=== PATIENT | male | born 1955 | race Caucasian/White ===

== ENCOUNTER 2021-01-31 05:51 | Inpatient (IN) | payer MEDICARE, OTHER ==
[~2021-01-31] VITALS: Ht 180.3 cm; Wt 86.3 kg
[~2021-01-31 05:51] MED LIST: COZAAR50 MG PO; DIOVAN320 MG PO; LEVAQUIN500 MG PO; LIPITOR20 MG PO; METRONIDAZOLE500 MG PO; NORCO 5-325 TA1 EACH PO; NORVASC5 MG PO; PLAVIX75 MG PO; TOPROL XL 50 MG50 MG PO; TOPROL XL100 MG PO; ZOCOR20 MG PO
[2021-01-31 06:11] LABS: BASOPHIL 0.5 % (0-2); EOSINOPHIL 0.6 % (0-7); HCT 43.2 % (42.0-52.0); HGB 14.9 g/dl (13.2-18.0); LYMPHOCYTE 22.2 % (15-48); MCH 32.6 pg (25.0-31.0); MCHC 34.5 g/dL (32.0-36.0); MCV 94.5 fL (78.0-100.0); MONOCYTE 8.7 % (0-12); MPV 9.2 fL (6.0-9.5); NEUTROPHIL 67.6 % (41-80); NRBC 0; PLT 254 K/uL (150-400); RBC 4.57 M/uL (4.70-6.00); RDW 12.5 % (11.5-14.0); WBC 15.2 K/uL (4.0-10.5)
[2021-01-31 06:37] LABS: BILIRUBIN NEGATIVE (NEGATIVE); BLOOD TRACE-INTACT Ery/uL (NEGATIVE); CLARITY HAZY (CLEAR); COLOR YELLOW (YELLOW); GLUCOSE (U) NORMAL (NORMAL); LEUKOCYTES 2+ Leu/uL (NEGATIVE); NITRITE POSITIVE (NEGATIVE); PROTEIN NEGATIVE (NEGATIVE); SPECIFIC GRAVITY 1.015 (1.001-1.030)
[2021-01-31 06:50] LABS: BACTERIA 4+
[2021-01-31 07:04] LABS: ALBUMIN 3.5 g/dL (3.4-5.0); BILIRUBIN - TOTAL 1.3 mg/dL (0.2-1.0); BUN/CREAT RATIO (CALC) 10.8 RATIO; CREATININE 0.93 mg/dL (0.67-1.17); GLOBULIN (CALCULATION) 4.4 g/dL; POTASSIUM 4.7 mmol/L (3.5-5.1); TOTAL PROTEIN 7.9 g/dL (6.4-8.2)
[2021-01-31] MEDS ORDERED: PLAVIX75 MG PO (11:38)
[2021-01-31] MEDS ORDERED: HCTZ12.5 MG PO (11:40)
[2021-01-31] MEDS ORDERED: DIOVAN320 MG PO (11:41)
[2021-02-01 06:45] LABS: BASOPHIL 0.6 % (0-2); EOSINOPHIL 0.8 % (0-7); HCT 40.2 % (42.0-52.0); HGB 13.6 g/dl (13.2-18.0); LYMPHOCYTE 19.7 % (15-48); MCH 32.8 pg (25.0-31.0); MCHC 33.8 g/dL (32.0-36.0); MCV 96.9 fL (78.0-100.0); MONOCYTE 6.9 % (0-12); MPV 9.3 fL (6.0-9.5); NEUTROPHIL 71.3 % (41-80); NRBC 0; PLT 247 K/uL (150-400); RBC 4.15 M/uL (4.70-6.00); RDW 12.7 % (11.5-14.0); WBC 14.5 K/uL (4.0-10.5)
[2021-02-01 07:07] LABS: ALBUMIN 3.2 g/dL (3.4-5.0); BILIRUBIN - TOTAL 1.4 mg/dL (0.2-1.0); GLOBULIN (CALCULATION) 4.2 g/dL; POTASSIUM 3.8 mmol/L (3.5-5.1); TOTAL PROTEIN 7.4 g/dL (6.4-8.2)
--- NOTE | 2021-02-01 15:33 | NUR ---
02/01/21 Mr. Oro lives at home with his spouse. He is employed at [employer]. Mr. Oro will need IV antibiotics at discharge. He has chosen to Outpatient infusion.
[2021-02-02 09:34] LABS: BUN/CREAT RATIO (CALC) 11.1 RATIO; CREATININE 0.72 mg/dL (0.67-1.17); POTASSIUM 3.7 mmol/L (3.5-5.1)
[2021-02-02 09:38] LABS: HCT 34.5 % (42.0-52.0); HGB 11.8 g/dl (13.2-18.0); MCH 32.6 pg (25.0-31.0); MCHC 34.2 g/dL (32.0-36.0); MCV 95.3 fL (78.0-100.0); MPV 9.2 fL (6.0-9.5); RBC 3.62 M/uL (4.70-6.00); RDW 12.4 % (11.5-14.0); WBC 10.3 K/uL (4.0-10.5)
--- NOTE | 2021-02-02 18:26 | NUR ---
02/02/21 1630 PIC LINE PLACEMENT ORDER RECEIVED FOR PICC LINE PLACEMENT. RISKS AND BENEFITS EXPLAINED. CONSENT SIGNED. PT'S LEFT UPPER ARM BASILIC VEIN VISUALIZED USING THE SITE RITE 6 ULTRA MACHINE. PT THEN PREPPED AND DRAPED IN STERILE FASHION. THE AREA WAS CLEANSED WITH CHLORAPREP. THE AREA WAS NUMBED WITH 1CC OF 1% LIDOCAINE. A 21GA NEEEDLE WAS USED. GOOD BLOOD RETURN. THE GUIDE WIRE THREADED EASILY. THE NEEDLE WAS REMOVED AND THE SHEATH WAS PLACED OVER THE WIRE. THE WIRE WAS THEN REMOVE AND A CAP WAS PLACED ON THE END. THE PT WAS MEASURED FOR THE PICC PLACEMENT. PICC WAS TRIMMED AT 53 CM AND FLUSHED. THE INTRODUCER WAS REMOVED AND THE PICC CATHETER WAS GUIDED INTO POSITION. THE SHEATH WAS PEELED BACK. A STERILE BIOPATCH WAS PLACED AT THE INSERTION SITE. A STAT LOCK WAS PLACED ON. A STERILE SORBAVIEW WAS PLACED OVER THE PICC LINE. A STAT PORTABLE CHEST XRAY WAS OBTAINED. PER RADIOLOGIST THE PICC LINE IS IN THE SVC. THE STYLET WAS REMOVED AND THE A CLEAR CAP WAS FLUSHED AND PLACED ON THE END. PT HAS A 4 FR SINGLE LUMEN POWER PICC. TRIMMED AT 53 CM, INSERTION 0 CM, BICEPS 33 CM. GOOD BLOOD RETURN NOTED. PT TOLERATED WELL. REPORT TO Noe BERNAL RN MED SURG. AFTER REMOVING THE STYLET THE DRESSING WAS CHANGE DUE TO THE BIPOPATCH NOTED SATURATEC WITH BLOOD. THE DRESSING DIS NOT HAV BLODD AND THE STAT LOCK WAS NOT BLOODY. DRESSING CHANGE WAS DONE IN STERILE FASHION. PT TOLERATED WELL. REPORT TO Noe BERNAL RN.
[2021-02-03] MEDS ORDERED: NORCO 5-325 TA1 EACH PO ×2 (12:38→12:39)
[2021-02-03] MEDS ORDERED: ERTAPENEM1 GM IV (12:38)
--- NOTE | 2021-02-05 14:26 | NUR ---
TC FROM MR. WALLIS OVER THE WEEKEND. HE STATED THAT THERE HAD BEEN A MISUNDERSTANDING AND THAT HE WANTED HH FOR HIS INFUSION. TC TO MR. WALLIS, BUT HIS ANSWERED THE PHONE. SHE STATED THAT MR. WALLIS WAS ON HIS WAY TO THE HOSPITAL FOR HIS IV ABX. MRS. WALLIS ADVISED THAT THEY WANTED HH FOR HIS INFUSION. MRS. WALLIS STATED THAT THEY HAD NO PREFERENCE FOR THE HH. I SENT THE INFORMATION TO ALEJANDRA AT [facility] WHEN THE INFUSION COMPANY RAN THE INSURANCE THE COST CAME UP AT $680.00 A WEEK FOR THE MEDICATION. I THEN CONTACTED [facility] AND THEY CAME BACK WITH THE SAME AMT. TC TO MR. WALLIS AND ADVISED HIM OF THIS INFORMATION. HE STATED THAT HE UNDESTOOD AND WOULD STAY WITH THE OUTPT. INFUSION. ADVISED MENAGERIE CARETAKER, JABARI CARDONA.
== END 2021-02-03 15:00 | disposition home or self-care (01) | DRG 392 ==
LOC: FER 05:51 → FMS 09:37
PROVIDERS: Emergency Medicine; Student in an Organized Health Care Education/Training Program; ADMIT Internal Medicine
PROC: 02HV33Z Insertion of Infusion Device into Superior Vena Cava, Percutaneous Approach (ICD-10-PCS; principal; 2021-02-02)
DX: K57.20 Diverticulitis of large intestine with perforation and abscess without bleeding (principal); N32.1 Vesicointestinal fistula; N39.0 Urinary tract infection, site not specified; Z20.822 Contact with and (suspected) exposure to COVID-19; D72.829 Elevated white blood cell count, unspecified; I10 Essential (primary) hypertension; I25.10 Atherosclerotic heart disease of native coronary artery without angina pectoris; Z95.1 Presence of aortocoronary bypass graft; Z87.891 Personal history of nicotine dependence; Z79.02 Long term (current) use of antithrombotics/antiplatelets; Z79.899 Other long term (current) drug therapy
CPT/HCPCS: 36415; 71045; 80048; 80053; 81001; 83690; 85025; 87076; 87088; 87186; C1751; J0696; J1170; J1335; J2270; J2405; J2543; J7030; Q9967; U0002

== ENCOUNTER → 2021-05-14 | Day surgery (SDC) | payer MEDICARE, OTHER ==
[~2021-05-14] VITALS: Ht 180.3 cm; Wt 94.5 kg
[~2021-05-14] MED LIST changes: +ERTAPENEM1 GM IV; +HCTZ12.5 MG PO
== END | disposition home or self-care (01) ==
LOC: FAS 06:05
DX: C18.4 Malignant neoplasm of transverse colon (principal); D12.7 Benign neoplasm of rectosigmoid junction; D12.2 Benign neoplasm of ascending colon; D12.5 Benign neoplasm of sigmoid colon; K57.20 Diverticulitis of large intestine with perforation and abscess without bleeding; K57.30 Diverticulosis of large intestine without perforation or abscess without bleeding; N32.1 Vesicointestinal fistula; I25.10 Atherosclerotic heart disease of native coronary artery without angina pectoris; I25.2 Old myocardial infarction; I10 Essential (primary) hypertension; E78.5 Hyperlipidemia, unspecified; Z95.1 Presence of aortocoronary bypass graft; Z87.891 Personal history of nicotine dependence; Z79.02 Long term (current) use of antithrombotics/antiplatelets; Z79.899 Other long term (current) drug therapy
CPT/HCPCS: J2704; J7120